=== PATIENT | male | born 1995 | race Caucasian/White ===

== ENCOUNTER 2020-03-16 19:39 | Emergency (ER) | payer OTHER ==
[~2020-03-16] VITALS: Ht 175.3 cm; Wt 91.8 kg
[2020-03-16] MEDS ORDERED: BENZONATATE 100 MG CAP PO ONE (21:15)
[2020-03-16] MEDS ORDERED: TESS100C PO (21:26)
[2020-03-16] MEDS ORDERED: PROAAER10 INH (21:26)
[2020-03-16 21:36] VITALS: BP 126/68
== END 2020-03-16 21:38 | disposition home or self-care (01) ==
LOC: M ED 19:39
DX: R05 Cough (principal); Z20.828 Contact with and (suspected) exposure to other viral communicable diseases
CPT/HCPCS: 99283; U0003

== ENCOUNTER 2020-03-24 00:58 | Emergency (ER) | payer OTHER ==
[~2020-03-24] VITALS: Ht 175.3 cm; Wt 95.0 kg
[~2020-03-24 00:58] MED LIST: PROAAER10 INH; TESS100C PO
[2020-03-24] MEDS ORDERED: ONDANSETRON 4 MG ORAL DISINTEGRATING TAB PO ONE (01:15)
[2020-03-24] MEDS ORDERED: TUSSICAPS ER 10/8MG CAPSULE PO ONE (01:45)
--- NOTE | 2020-03-24 01:53 | REPVR ---
PROCEDURE INFORMATION: Exam: XR Chest, 2 Views Exam date and time: 03/24/2020 1:13 AM Age: 24 years old Clinical indication: Other: Cough, SOB TECHNIQUE: Imaging protocol: XR of the chest Views: 2 views. COMPARISON: No relevant prior studies available. FINDINGS: Lungs: Degree of inflation of the lungs is normal. No evidence of pulmonary edema. No focal airspace process. No concerning parenchymal lung mass. Pleural space: No pleural effusion or pneumothorax. Heart/Mediastinum: Cardiac silhouette appears normal. No mediastinal adenopathy or hilar mass. Bones/joints: Osseous structures show no acute or concerning abnormality. IMPRESSION: No active or focal cardiopulmonary process. Electronically signed by: Harvey Mix On 03/24/2020 01:53:05 AM
[2020-03-24 01:54] VITALS: BP 138/75
== END 2020-03-24 02:05 | disposition home or self-care (01) ==
LOC: M ED 00:58
DX: R05 Cough (principal)
CPT/HCPCS: 71046; 99283; Q0162